=== PATIENT | male | born 1995 | race Two or more races ===

== ENCOUNTER 2018-03-02 09:25 | Emergency (ER) | payer OTHER ==
[2018-03-02 09:30] VITALS: BMI 26.2
--- NOTE | 2018-03-02 09:33 | PDOC ---
History of Present Illness - General Chief Complaint: Headache Stated Complaint: HEADACHE Time Seen by Provider: 03/02/18 09:33 History Source: Patient - History of Present Illness Initial Comments: 03/02/18 09:51 22 year old male presents to the ED c/o 2 day h/o headache. Headache is 10/10, constant, sharp, with no identifiable triggering or relieving factors. Endorses nausea and photophobia, denies any trauma, vomiting, mental status changes. Notes h/o previous similar headache in July 2017 which was relieved by PO medication given at another facility. Tolerating PO intake. Patient denies any active chest pain, shortness of breath, abdominal pain, diarrhea/constipation, dysuria/hematuria. As per EMR patient has not been evaluated at our facility on prior occasion. NKDA Surgical: denies Social: denies nicotine, denies alcohol, denies recreational drugs Past History - Past Medical History Allergies/Adverse Reactions: Allergies Allergy/AdvReac Type Severity Reaction Status Date / Time No Known Allergies Allergy Verified 03/02/18 09:27 Home Medications: Ambulatory Orders NK [No Known Home Medication] 03/02/18 Asthma: Yes COPD: No - Suicide/Smoking/Psychosocial Hx Smoking History: Never smoked Have you smoked in the past 12 months: No Information on smoking cessation initiated: No Hx Alcohol Use: No Drug/Substance Use Hx: No Substance Use Type: None Review of Systems - Review of Systems Constitutional: No: Chills, Fever HEENTM: Yes: Other (headache; photophobia) Respiratory: No: Cough, Shortness of Breath Cardiac (ROS): No: Chest Pain, Lightheadedness, Palpitations, Syncope ABD/GI: Yes: Nausea. No: Constipated, Diarrhea, Vomiting : No: Burning, Dysuria Neurological: Yes: Headache. No: Numbness, Tremors, Weakness All Other Systems: Reviewed and Negative *Physical Exam - Vital Signs Last Vital Signs Temp Pulse Resp BP Pulse Ox 98.4 F 77 18 124/77 100 03/02/18 09:27 03/02/18 09:27 03/02/18 09:27 03/02/18 09:27 03/02/18 09:27 - Physical Exam Comments: 03/02/18 13:07 GENERAL: Awake, alert, and fully oriented, in no acute distress, photophobia HEAD: No signs of trauma EYES: PERRLA, EOMI, sclera anicteric, conjunctiva clear, no red reflex on opthalmogic exam ENT: Auricles normal inspection, hearing grossly normal, nares patent, oropharynx clear without exudates. Moist mucosa NECK: Nontender, no stepoffs, Normal ROM, supple, no lymphadenopathy, JVD, or masses LUNGS: Breath sounds equal, clear to auscultation bilaterally. No wheezes, and no crackles HEART: Regular rate and rhythm, normal S1 and S2, no murmurs, rubs or gallops ABDOMEN: Soft, nontender, normoactive bowel sounds. No guarding, no rebound. No masses EXTREMITIES: Normal range of motion, no edema. No clubbing or cyanosis. No cords, erythema, or tenderness NEUROLOGICAL: Cranial nerves II through XII intact. 5/5 strength and sensation in all extremities, Normal speech, normal gait, normal cerebellar function SKIN: Warm, Dry, normal turgor, no rashes or lesions noted. ED Treatment Course - LABORATORY CBC & Chemistry Diagram: 03/02/18 11:15 03/02/18 11:15 Medical Decision Making - Medical Decision Making 03/02/18 10:01 22 year old male with headache. Physical exam shows supple neck, no nasal turbinates, mild photophobia. Will give headache cocktail. Reassess. 03/02/18 11:15 Patient reassessed @ bedside. Symptomatically improved. Tolerating PO intake. CMP unremarkable 03/02/18 12:13 Snellen Eye test shows 20/30 L and 20/25 on the R; patient notes "every time I have a headache I have blurry vision" PO Tylenol (patient refuses additional IV medications). No 03/02/18 12:59 CBC shows no hyponatremia, no leukocytosis. Patient ambulatory around unit. At this time, as patient symptomatically improved with headache cocktail, SiSx c /w previous episode of headache, have low clinical suspicion for acute intracranial process including hemorrhage. SiSx most likely 2/2 to migraine. Will discharge home with return precautions, referral to neurology, ophthalmology (patient cannot recall last eye evaluation), as well as resident clinic to evaluate for primary care. I discussed the physical exam findings, ancillary test results and final diagnoses with the patient. I answered all of the patient's questions. The patient was satisfied with the care received and felt comfortable with the discharge plan and treatment plan. The patient will return to the Emergency Department with any new, persistent or worsening symptoms. *DC/Admit/Observation/Transfer Diagnosis at time of Disposition: Headache - Discharge Dispostion Disposition: HOME Condition at time of disposition: Good Admit: No - Referrals Referrals: Scooby Robledo MD [Staff Physician] - Jeremy Holbrook MD [Staff Physician] - - Patient Instructions Additional Instructions: You can continue to take Motrin or Tylenol for your headaches. Make a follow up appointment with neurology (Dr. Holbrook) and ophthalmology ( Dr. Robledo) in the next 1 week. Please also make an appointment with Dr. Beni Wagoner in the next 2-3 days to establish primary care. Return to the Emergency Department for any new/worsening/concerning symptoms. - Post Discharge Activity
[2018-03-02] MEDS ORDERED: METOCLOPRAMIDE HCL INJECTION 10 MG/2 ML VIAL IVPUSH ONE (09:54)
[2018-03-02] MEDS ORDERED: SODIUM CHLORIDE 0.9% 500 ML INFUS.BAG IV ONE (09:54)
[2018-03-02] MEDS ORDERED: METOCLOPRAMIDE HCL INJECTION 10 MG/2 ML VIAL ONE (10:04)
--- NOTE | 2018-03-02 11:10 | PDOC ---
Attending Attestation - Resident Resident Name: Mely Lam - ED Attending Attestation I have performed the following: I have examined & evaluated the patient, The case was reviewed & discussed with the resident, I agree w/resident's findings & plan, Exceptions are as noted - Medical Decision Making 03/02/18 11:48 22 yo male h/o prior headaches here with sinus pressure and headache. normal nuero exam. likley sinusitis or tension headache.plan labs ivf r/o anemia or electrolyte abnoramlity. ivf reglan reassess. pt improved will refer outpt nuerology. <Libia Velazquez - Last Filed: 03/02/18 11:48> - HPI HPI: 03/02/18 11:11 The patient is a 22 year old male, with no significant past medical history, who presents to the emergency department with a headache for approximately 2 days. The patient reports a constant frontal facial pressure, nonradiating, which he rates a 10/10. He denies any nausea or vomiting. He reports some blurry vision, but denies any fever, chills, dizziness, lightheadedness, photophobia, tinnitus, or weakness. The patient reports a similar headache once before, and states he has never been evaluated by a specialist for his symptoms. He denies any alleviating or exacerbating factors, mental status changes, or trauma. Allergies: NKDA \ - Physicial Exam PE: 03/02/18 11:11 GENERAL: Awake, alert, and fully oriented, in no acute distress HEAD: +Frontal sinus tenderness. No signs of trauma. EYES: PERRLA, EOMI, sclera anicteric, conjunctiva clear ENT: Auricles normal inspection, hearing grossly normal, nares patent. Moist mucosa NECK: Normal ROM, supple, no lymphadenopathy, JVD, or masses LUNGS: Breath sounds equal, clear to auscultation bilaterally. No wheezes, and no crackles HEART: Regular rate and rhythm, normal S1 and S2, no murmurs, rubs or gallops ABDOMEN: Soft, nontender, normoactive bowel sounds. No guarding, no rebound. No masses EXTREMITIES: Normal range of motion, no edema. No clubbing or cyanosis. No cords, erythema, or tenderness. DP/PT pulses 2+ and symmetric. NEUROLOGICAL: Moves all extremities. Normal speech, normal gait. 5/5 strength throughout. Cranial nerves II-XII are grossly intact. SKIN: Warm, Dry, normal turgor, no rashes or lesions noted. - Medical Decision Making 03/02/18 11:11 Documentation prepared by Vincenzo Payan, acting as medical orderly for Libia Velazquez MD. <Vincenzo Payan - Last Filed: 03/02/18 12:09>
[2018-03-02 11:37] VITALS: BP 130/73; PULSE 70; TEMP 98
[2018-03-02] MEDS ORDERED: ACETAMINOPHEN 500 MG TABLET (FP) PO ONE (11:42)
[2018-03-02 11:51] LABS: ALBUMIN 3.9 g/dl (3.4-5.0); ANION GAP 5 (8-16); BILIRUBIN,TOTAL 0.6 mg/dL (0.2-1.0); BLOOD UREA NITROGEN 10 mg/dL (7-18); CALCIUM 8.7 mg/dL (8.5-10.1); CHLORIDE 106 mmol/L (98-107); CO2 29 mmol/L (21-32); CREATININE 1.1 mg/dL (0.7-1.3); GLUCOSE,RANDOM 77 mg/dL (74-106); POTASSIUM 3.9 mmol/L (3.5-5.1); SGOT/AST 22 U/L (15-37); SGPT/ALT 22 U/L (12-78); SODIUM 140 mmol/L (136-145); TOT PROT 7.5 g/dl (6.4-8.2)
[2018-03-02 11:52] LABS: ALK PHOS 78 U/L (45-117)
[2018-03-02] MEDS ORDERED: ACETAMINOPHEN 325 MG TABLET (FP) ONE (12:01)
[2018-03-02 12:23] LABS: HEMATOCRIT 43.7 % (35.4-49); HEMOGLOBIN 14.7 GM/dL (11.7-16.9); MCHC 33.7 g/dl (32.0-35.9); MEAN PLT VOLUME 9.2 fl (7.5-11.1); PLATELET COUNT 168 K/MM3 (134-434); RBC 5.08 M/mm3 (4.00-5.60); RDW 14.2 % (11.9-15.9); WHITE BLOOD COUNT 4.4 K/mm3 (4.0-10.0)
[2018-03-02 14:17] LABS: PLATELET ESTIMATE NORMAL
== END 2018-03-02 13:07 | disposition home or self-care (01) ==
LOC: JER 09:25
PROC: 3E033GC Introduction of Other Therapeutic Substance into Peripheral Vein, Percutaneous Approach (ICD-10-PCS; principal; 2018-03-02)
PROC: 3E0337Z Introduction of Electrolytic and Water Balance Substance into Peripheral Vein, Percutaneous Approach (ICD-10-PCS; 2018-03-02)
DX: R51 Headache (principal)
CPT/HCPCS: 36415; 80053; 85025; 99282-25